=== PATIENT | female | born 1950 | race Caucasian/White ===

== ENCOUNTER 2019-02-07 15:27 | Emergency (ER) | payer MEDICARE, SELFPAY ==
[2019-02-07 15:29] VITALS: BP 131/48; PULSE 74; RESP 18; TEMP 37; O2SAT 98; BMI 33.4
--- NOTE | 2019-02-07 15:44 | RAD_ITS ---
STUDY: X-RAY CHEST REASON FOR EXAM: Female, 68 years old. Fall, left-sided pain TECHNIQUE: PA and lateral views of the chest. COMPARISON: None. FINDINGS: The lungs are clear and expanded. There is no demonstrated pleural abnormality. There is mild cardiac enlargement. Normal mediastinum and vahid. Normal visualized pulmonary arteries. There is atherosclerotic calcification of the aortic arch with tortuosity. There is demineralization of the osseous structures. No demonstrated fracture. There are operative changes of the left humeral head. Stent in the right upper abdomen may represent a TIPS. There may be a right ureter stent. RAD/Chest PA and Lateral IMPRESSION: No acute cardiopulmonary process. Electronically Signed: Link Gordon MD at 16:20 EDT , Service support ,
--- NOTE | 2019-02-07 15:46 | ED.DCSUM_ITS ---
History of Present Illness Chief Complaint: Fall Informant: Patient Onset: Today Mechanism/Context: Fall Quality of Pain: Dull Current Severity: Mild Maximum Severity: Moderate Worsened by: Breathing and palpation Relieved by: Remaining still Associated Symptoms: Negative for: Parasthesias, Weakness, Loss of function, In ability to ambulate, Loss of consciousness, Amnesia Narrative: Patient is a elderly woman who tripped on a rug falling forward onto concrete. She hit her face. There is no loss of conscious. She has difficulty seeing with her left eye because of swelling. She denies ringing or ears or decreased hearing. She denies malalignment of her teeth. She denies inability to open or close her mouth completely. She denies neck pain. She denies paresthesia, anesthesia motors. She does report chest pain. She denied abdominal pain. She denied pelvis pain. She denies lower extremity pain or trauma. She is on no anticoagulant. Tetanus Immunization: Unknown Prior similar symptoms: No Recent Illness/Hospitalization: No - Past Medical History (1) History of colon cancer Status: Acute Past Medical History - Allergies and Home Meds Allergies/Adverse Reactions: Allergies No Known Allergies Allergy (Verified 02/07/19 15:37) Primary Care Physician: Adin Terry MD [Primary Care Provider] - Prior records reviewed: No - There are no prior medical records Surgical History: noncontributory Lives: Spouse/ Significant Other Smoking Status: Never smoker Alcohol: None Drugs: None Review of Systems General: Denies: Chills, Fever, Sweats Eyes: Denies: Visual changes - bilaterally, Diplopia ENT: Denies: Rhinorrhea, Sore throat Cardiovascular: Reports: Chest pain. Denies: Palpitations, Heart racing, -, - Respiratory: Denies: Dyspnea, Cough, Dyspnea on exertion Gastrointestinal: Denies: Abdominal pain, Nausea, Vomiting, Diarrhea, Melena, Hematochezia Genitourinary: Denies: Dysuria, Hematuria, Frequency Musculoskeletal: Denies: Myalgias, Arthralgias, Neck pain, Back pain, Swelling, Extremity Pain Skin: Reports: Abrasions. Denies: Rash, Abscess, Wounds Neurological: Denies: Headache, Weakness, Parasthesia, Numbness Hematologic: Denies: Easy bruising, Easy bleeding Physical Exam Vital Signs/Narrative: Vital Signs Temp Pulse Resp BP Pulse Ox 05/25/19 15:29 98.6 F 74 18 131/48 H 98 Inital Vital Signs reviewed: Yes General: Well nourished, Well developed Head: Normocephalic, Trauma, Tenderness, - - There is tenderness inferior to the left orbit. There is no hyperesthesia. There is no entrapment. There is no diplopia. There is no pain the patient of the zygomatic arch. She does have evidence of subcutaneous hematoma noted. Eyes: Perrl, EOMI. Negative for: Pale conjunctiva, Scleral icterus, - - Subconjunctival hemorrhage temporal half left eye. ENT: TM's clear, No hemotympanum or drainage, No trauma. Negative for: Otorrhea, Nasal trauma, Nasal septal hematoma Neck: Nontender, Full ROM. Negative for: Spinal Tenderness, Paraspinal Tenderness Cardiovascular: Regular rate, Regular rhythm, No murmurs, Normal S1, Normal S2 Respiratory: No distress, CTA bilaterally, Chest tenderness - There is tenderness over the left fourth, fifth and sixth rib. No crepitus or subcutaneous air noted.. Negative for: Chest nontender Abdomen: Soft, Nondistended, Normal bowel sounds, No masses, Tender - This upper abdomen. There is a contusion noted.. Negative for: Nontender, Guarding, Rebound tenderness, Hepatomegaly, Splenomegaly, Mass Rectal: Deferred Back: Nontender. Negative for: CVA Tenderness - Right, CVA Tenderness - Left, Spinal Tenderness Skin: Normal color, Trauma - Left facial hematoma and contusion abdominal wall. Negative for: No rash Neurological: Alert, Oriented x3, Cranial nerves II-XII grossly intact, Normal Strength, Normal Sensation, Normal DTR, - - GCS 15 Psychological: Normal affect, Normal Mood - Coma Scale Eye Opening: Spontaneous Motor: Obeys Commands Verbal: Oriented Coma Scale Total: 15 Diagnostic/Tx/Re-eval Chest X-Ray - ED: 2 View, Read by ED Physician, Normal, Heart, Lungs, Mediastinum, Bony Structures, No Acute Disease, - - There is evidence of a mesh right upper quadrant and a catheter which may represent a urethral stent. There is no evidence of pneumothorax or hemothorax. The sternum is not fractured. - Medical Decision Making Chest x-ray was obtained to evaluate for pneumothorax and hemothorax. Since pain was anterior rib details were not obtained. Furthermore rib details are not indicated based on literature. Patient was medicated with 5 mg of OxyContin and Zofran p.o. Chest x-ray was obtained to evaluate for pneumothorax and hemothorax. Clinically patient does not have an orbital wall fracture and reason imaging of the face was not obtained. Since there was no loss of consciousness and she is on no anticoagulant and was not dazed nor is amnestic per the [place] CT head rule imaging was not obtained. Since x-rays are negative will discharge with appropriate home-going instruction and pain medication. ED Disposition - Plan for ED Patient: Disposition: Home or Assisted Living Diagnosis: Facial contusion, Contusion of chest wall with intact skin, Abdominal wall contusion Instructions: ED Mechanical Fall, ED Contusion Chest Wall Prescriptions: Hydrocodone Bitart/Apap 5-325 [[place] 5MG-325MG] 1 tab PO Q6H PRN PRN 3 Days #10 tab PRN Reason: Pain Referrals: Adin Terry MD [Primary Care Provider] - 1 Week if not improving Additional Instructions: You may have swelling and discoloration for 2 to 4 weeks. You may hurt for greater than 1 week. Apply ice where you have discomfort for 20 to 30 minutes 6-8 times a day for the next 3 to 5 days. You may hurt in more places then you presently do.
[2019-02-07] MEDS: Ondansetron ODT 4 MG Tablet PO (16:22)
[2019-02-07] MEDS: Diphth,Pertuss(Acell),Tet Vac 0.5 ML Vial IM (16:22)
[2019-02-07] MEDS: oxyCODONE 5 MG Tablet PO (16:22)
[2019-02-07 16:50] VITALS: BP 127/86; PULSE 67; RESP 14; O2SAT 99
== END 2019-02-07 16:50 | disposition home or self-care (01) ==
PROVIDERS: Emergency Provider Emergency Medicine; Family Provider Family Medicine; PCP Family Medicine
DX: S05.12XA Contusion of eyeball and orbital tissues, left eye, initial encounter (principal); S20.212A Contusion of left front wall of thorax, initial encounter; S30.1XXA Contusion of abdominal wall, initial encounter; W18.09XA Striking against other object with subsequent fall, initial encounter; Y93.9 Activity, unspecified; Y92.9 Unspecified place or not applicable
CPT/HCPCS: 71046; 90471; 90715; 99284